=== PATIENT | female | born 1995 | race Hispanic/Latino ===

== ENCOUNTER → 2018-08-21 | Emergency (ER) | payer OTHER ==
[2018-08-21 13:01] LABS: HEMOGLOBIN 13.5 g/dL (12.0-16.0); MEAN CELL VOLUME 90.8 fl (81.0-99.0); MEAN CORPUSCULAR HEMOGLOBIN 30.6 pg (27.0-31.0); MEAN CORPUSCULAR HGB CONC 33.7 g/dL (33.0-37.0); RBC 4.41 Mil/uL (3.80-5.20); RED CELL DISTRIBUTION WIDTH 12.7 % (11.5-14.5); WHITE BLOOD COUNT 8.1 K/uL (4.8-10.8)
[2018-08-21 13:33] LABS: ALB/GLOB RATIO 1.1 (1.0-2.1); ALBUMIN 3.9 g/dL (3.5-5.0); ALT/SGPT 17 U/L (9-52); AST/SGOT 18 U/L (14-36); BLOOD UREA NITROGEN 7 mg/dl (7-17); CALCIUM 9.4 mg/dL (8.4-10.2); GFR NON-AFRICAN AMERICAN > 60
--- NOTE | 2018-08-21 14:18 | OBHP ---
Datetime: 08/21/2018 12:47 IP Adm Impression: Term, intrauterine IP Chief Complaint Other: dizzy IP Admit Plan: Observation/Evaluation Admit Comment, IP Provider: This is a 23 yo f 38wk Present to [facility] Due to dizziness, that start ed yesterday. Otherwise patient have no other complains, patient denies trauma, fall or LOC. She denies N/V/D/ constipation, fever chills, or any other symptoms. Patient state she have mild vaginal discharge, but no bleeding, contraction or pain. She have been eating and drinking well Allergy: Penicillin OB doctor: Sukhjinder Med: PMH none PSH none PFH none Social denies smoking/ETOH or drugs use. ROS negative except mentioned in HPI 12:51 Assessment and plan 23 yo 38wk present to [facility] due to dizziness Vitals WNL Plan NST CBC CMP Ed Melania PGY1 Case discussed with Dr. Casarez Addendum: I saw and examined patient. Pt AF and VSS. FHT category I. Plan to observe and check labs. If VS remain stable and labs WNL, plan for D/C home. Discussed plan with patient and all patient questi ons answered. Pelvic Type - PN: Not Done Extremities - PN: Normal Abdomen - PN: Normal Back - PN: Normal Breast - PN: Not Done Lungs - PN: Normal Heart - PN: Normal Thyroid - PN: Normal Neurologic - PN: Normal HEENT - PN: Normal General - PN: Normal Comments, ACOG Physical Exam: Pt not acute distress Heart s1/s2 heard no extra heart sound lung are clear abdomen distended + for BS+ Gestation - Est Wks by US: 38.0 EGA AdmitDate IP: 38.5 IP Chief Complaint: Maternal discomfort Genitourinary Exam: Normal DTRs - PN: Not Done
[2018-08-22 00:32] VITALS: BP 105/68; PULSE 100; RESP 18; TEMP 99.1; O2SAT 97
== END | disposition home or self-care (01) ==
LOC: H.EROB2 12:04
DX: O26.93 Pregnancy related conditions, unspecified, third trimester (principal); R42 Dizziness and giddiness; Z3A.38 38 weeks gestation of pregnancy

== ENCOUNTER 2018-09-05 19:17 | Inpatient (IN) | payer OTHER, MEDICAID ==
[2018-09-05 20:56] VITALS: BMI 28.3
[2018-09-05] MEDS ORDERED: Lactated Ringer's 1,000 ML IV ONE ×2 (20:56→20:57)
[2018-09-05] MEDS ORDERED: Oxytocin 30 UNIT in NS 500 ml 30 UNITS/500 ML BAG IV ONE ×2 (21:14→21:24)
[2018-09-05] MEDS ORDERED: OXYTOCIN/0.9 % NS 20 UNIT/1,000 ML BAG IV ONE (21:25)
[2018-09-05 22:46] LABS: BASO % 0.3 % (0.0-2.0); EOS # 0.1 K/uL (0.0-0.7); EOS % 0.8 % (0.0-4.0); LYMPH # 1.8 K/uL (1.0-4.3); LYMPH % 17.6 % (20.0-40.0); MEAN CELL VOLUME 91.2 fl (81.0-99.0); MEAN CORPUSCULAR HEMOGLOBIN 30.5 pg (27.0-31.0); MEAN CORPUSCULAR HGB CONC 33.5 g/dL (33.0-37.0); MEAN PLATELET VOLUME 10.1 fl (7.2-11.7); MONO # 0.8 K/uL (0.0-0.8); NEUT # 7.6 K/uL (1.8-7.0); NEUT % 73.3 % (50.0-75.0); NRBC % 0.1 % (0.0-0.0); RBC 4.26 Mil/uL (3.80-5.20); RED CELL DISTRIBUTION WIDTH 13.2 % (11.5-14.5); WHITE BLOOD COUNT 10.3 K/uL (4.8-10.8)
--- NOTE | 2018-09-05 22:49 | OBADHP ---
Datetime: 09/05/2018 20:46 Admit Comment, IP Provider: Pt is a 23 yo F EGA of 40.5 wk MAN 08/30/18 based on LMP 11/23/17. Pt is here for scheduled induction, feels mild tightening and cramping. Denies vaginal bleeding, or LOF . Reports good movement. Denies fever, chills, headaches, blurry vision, SOB, chest pain, dizzi ness, diarrhea, constipation, or dysuria. All other systems reviewed and negative Provider: Dr. Slaughter PMHx: None Meds: PNV FMHx: None Allergies: PCN- Rash SurgHx: None SOCHx: Denies EtOH, tobacco, or drug use OBGYN: Choroid plexus cyst at 28 weeks, Chlamydia treated 2014 J[facility] negative, Pap NILM with sheba 02/16/18 No DM or HTN in Labs: O+, AB neg, Rubella- Immune, GBS neg, Hep B neg, HIV neg, GC/CHL neg, RPR non reactive, TDAP 06/01/18 Assessment Pt is a 23 yo F EGA of 40.5 wk MAN 08/30/18 based on LMP 11/23/17. Pt is here for scheduled ind uction, feels mild tightening and cramping. Plan: -Admit to L _ D -Initiate labor induction protocol -Bimanual exam- %/-1 -IVF's, Pitocin -Monitor VS- BP 113/79 -Monitor FHR tracing 150's, moderate variability, 15x15 accels, no decels Case reviewed and discussed with Dr. Nikita Rios PGY1 OB Hospitalist Addendum: Pt seen and examined by me. Agree w/ above. 23 yo G1 at 40+6 wks for in duction of labor for post-dates. FHT reactive. GBS negative. Will start pitocin for induction. (E S) Extremities - PN: Normal Abdomen - PN: Normal Lungs - PN: Normal Heart - PN: Normal HEENT - PN: Normal General - PN: Normal FHR - Baseline A Provider: 150's Membranes, Provider: Intact Comments, ACOG Physical Exam: GEN: NAD HEENT: NCAT, EOMI RESP: CTA, no wheezes, rales, or rhonchi, CV: RRR, No m/r/g ABD: Gravid, Soft, nontender to palpation + BS appreciated throughout LE: no edema Bimanual exam 3/90%/-1 Monitor FHR tracing 150's, moderate variability, 15x15 accels, no decels IP Hx Assessment: The History has been Reviewed and is Current Vital Signs Provider: Reviewed; Within Normal Limits IP Chief Complaint: Scheduled induction of labor NICHD Variability Prov Fetus A: Moderate 6-25bpm NICHD Accel Fetus A IP Provider: 15X15 FHR Category Provider Fetus A: Category I NICHD Decel Fetus A IP Provider: None Dilatation, Provider: 3 Effacement, Provider: 90 Station, Provider: -1 EGA AdmitDate IP: 40.6 IP Adm Impression: Term, intrauterine ; Intact Membranes IP Admit Plan: Admit to unit; Initiate labor induction protocol Datetime: 08/21/2018 12:47 IP Chief Complaint Other: dizzy Pelvic Type - PN: Not Done Back - PN: Normal Breast - PN: Not Done Thyroid - PN: Normal Neurologic - PN: Normal Gestation - Est Wks by US: 38.0 Genitourinary Exam: Normal DTRs - PN: Not Done
[2018-09-06] VITALS: O2SAT 100
[2018-09-06] MEDS ORDERED: Fentanyl/Bupivacaine HCl 250 ML EPI ONE (02:19)
[2018-09-06] MEDS ORDERED: Benzocaine/Menthol SPRAY TOP PRN ×2 (08:24→09:25)
[2018-09-06] MEDS ORDERED: Oxycodone/Acetaminophen 5/325 mg Tab PO PRN ×2 (08:24→09:25)
--- NOTE | 2018-09-06 08:33 | OBDS ---
DELIVERY PERSONNEL Delivery Doctor: Linda Shelton MD Band Tacker: Luana Carvajal RN MATERNAL INFORMATION Delivery Anesthesia: Epidural Medications in Delivery: pitocin 30units Placenta Cultured: No Maternal Complications: None Provider Comments: Pt progressed to complete and pushed to deliver a viable female through cl ear fluid at 0739. Apgars 9 and 9. Wt 3440 gms, 7#9.3. placed on mother's abdomen. Delayed cord clamping was done. Cord doubly clamped and FOB cut the cord. CBR cord blood was collected. Placenta delivered sponataneously intact w/ 3vc at 0745. Second degree tear repaired w/ 2-0 rapide a nd 3-0v. Uterus massaged d/t bleeding. Pt and baby tolerated the procedure well. QBL 1 liter LABOR SUMMARY EDC: 08/30/2018 00:00 No. Babies in Womb: 1 Attempted: No Labor Anesthesia: Epidural LABOR INFORMATION Reason for Induction: Postterm Complete Dilatation: 09/06/2018 07:15 Oxytocin: Induction Group B Beta Strep: Negative Antibiotics # of Doses: n/a Antibiotics Time of Last Dose: n/a Steroids Given: None Reason Steroids Not Administered: Not Applicable MEMBRANES Membranes Rupture Method: Spontaneous Rupture of Membranes: 09/06/2018 06:30 Length of Rupture (hrs): 1.15 Amniotic Fluid Color: Clear Amniotic Fluid Amount: Moderate Amniotic Fluid Odor: None STAGES OF LABOR Stage 2 hrs: 0 Stage 2 min: 24 Stage 3 hrs: 0 Stage 3 min: 6 VAGINAL DELIVERY Laceration Extension: Second Degree Laceration Type: Perineal Laceration Repair: Yes Initial Vag Sponge Count: 10 sponges, 5 laps with ring Final Vag Sponge Count: 10 sponges, 5 laps with ring Initial Vag Sharps Count: 2 sutures Final Vag Sharps Count: 2 sutures BABY A INFORMATION Infant Delivery Date/Time: 09/06/2018 07:39 Method of Delivery: Vaginal Born in Route : No : N/A Forceps: N/A Vacuum Extraction: N/A Shoulder Dystocia : No SHOULDER DYSTOCIA BABY A Delivery Date/Time: 09/06/2018 07:39 PRESENTATION/POSITION BABY A Presentation: Cephalic Cephalic Presentation: Vertex Breech Presentation: N/A PLACENTA INFORMATION BABY A Placenta Delivery Time : 09/06/2018 07:45 Placenta Method of Delivery: Spontaneous SCORES BABY A Heart Rate 1 min: >100 bpm Resp Effort 1 min: Good Cry Reflex Irritability 1 min: Cough or Sneeze or Pulls Away Muscle Tone 1 min: Active Motion Color 1 min: Body [place], Extremities Blue Resuscitation Effort 1 min: Tactile Stimulation SCORE 1 MIN: 9 Heart Rate 5 min: >100 bpm Resp Effort 5 min: Good Cry Reflex Irritability 5 min: Cough or Sneeze or Pulls Away Muscle Tone 5 min: Active Motion Color 5 min: Body [place], Extremities Blue Resuscitation Effort 5 min: N/A SCORE 5 MIN: 9 INFORMATION BABY A Gestational Age at Delivery: 41.0 Gestational Status: Term Outcome : Liveborn Condition : Stable Sex: Female IDENTIFICATION/MEDS BABY A ID Band Number: [id number] ID Band Location: Left Leg; Left Arm Vitamin K Given : Not Given Erythromycin Given: Not Given WEIGHT/LENGTH BABY A Infant Birthweight (gms): 3440 Infant Weight (lb): 7 Infant Weight (oz): 9 CORD INFORMATION BABY A No. Cord Vessels: 3 Nuchal Cord : N/A Cord Blood Taken: Yes Banking/Donate Info: CBR Infant Suction: None ASSESSMENT BABY A Complications: None Physical Findings at Delivery: Within Normal Limits Infant Respirations: Appears Normal Dental Office Manager/ALS Called : No Infant Care By: Dr. Davis Transferred To: Remains with Mother
[2018-09-06] MEDS ORDERED: Multivitamin With Minerals Tab PO SCH (09:00)
[2018-09-06] MEDS: Multivitamin With Minerals Tab PO SCH (10:56)
[2018-09-07 07:03] LABS: BASO % 0.2 % (0.0-2.0); EOS # 0.1 K/uL (0.0-0.7); EOS % 1.4 % (0.0-4.0); LYMPH # 1.8 K/uL (1.0-4.3); LYMPH % 19.6 % (20.0-40.0); MEAN CELL VOLUME 90.8 fl (81.0-99.0); MEAN CORPUSCULAR HEMOGLOBIN 30.7 pg (27.0-31.0); MEAN CORPUSCULAR HGB CONC 33.8 g/dL (33.0-37.0); MEAN PLATELET VOLUME 9.8 fl (7.2-11.7); MONO # 0.8 K/uL (0.0-0.8); MONO % 8.6 % (0.0-10.0); NEUT # 6.4 K/uL (1.8-7.0); NEUT % 70.2 % (50.0-75.0); RBC 2.64 Mil/uL (3.80-5.20); RED CELL DISTRIBUTION WIDTH 13.2 % (11.5-14.5); WHITE BLOOD COUNT 9.1 K/uL (4.8-10.8)
[2018-09-07 07:13] LABS: HEMOGLOBIN 8.1 g/dL (12.0-16.0)
[2018-09-07] MEDS: Multivitamin With Minerals Tab PO SCH (08:41)
[2018-09-08] MEDS: Multivitamin With Minerals Tab PO SCH (10:25)
[2018-09-08 21:28] VITALS: BP 116/78; PULSE 98; RESP 18; TEMP 98.1
== END 2018-09-08 16:00 | disposition home or self-care (01) | DRG 807 ==
LOC: H.EROB2 19:17 → H.L&D 20:56 → H.OB/GYN 09-06 10:54
PROVIDERS: ADMIT Obstetrics & Gynecology; ATTEND Obstetrics & Gynecology
PROC: 4A1HXCZ Monitoring of Products of Conception, Cardiac Rate, External Approach (ICD-10-PCS; 2018-09-05)
PROC: 10E0XZZ Delivery of Products of Conception, External Approach (ICD-10-PCS; principal; 2018-09-06)
PROC: 0KQM0ZZ Repair Perineum Muscle, Open Approach (ICD-10-PCS; 2018-09-06)
DX: O48.0 Post-term pregnancy (principal); Z37.0 Single live birth; O70.1 Second degree perineal laceration during delivery; Z3A.41 41 weeks gestation of pregnancy